=== PATIENT | male | born 1955 | race Caucasian/White ===

== ENCOUNTER → 2017-03-03 | Outpatient (CLI) | payer OTHER ==
[~2017-03-03] MED LIST: NORCO 5-325 TA1 EACH PO; VITAMIN C + RO500 MG; ZZZQUIL25 MG
== END ==
LOC: CAT 12:09
PROVIDERS: Internal Medicine Cardiovascular Disease
DX: I71.2 Thoracic aortic aneurysm, without rupture (principal)